=== PATIENT | male | born 1950 | race Caucasian/White ===

== ENCOUNTER 2018-08-06 18:43 | Observation (INO) ==
[2018-08-06] MEDS ORDERED: Ipratropium/Albuterol Neb 3 ML IH ONE ×2 (19:22→23:34)
[2018-08-06] MEDS ORDERED: methylPREDNISolone 125 MG/2 ML VIAL IVP ONE (19:22)
--- NOTE | 2018-08-06 19:30 | Emergency Department Note ---
Disposition Clinical Impression: Acute exacerbation of chronic obstructive airways disease, Bronchitis Dyspnea Qualifiers: Dyspnea type: shortness of breath Qualified Code(s): R06.02 - Shortness of breath; R06.00 - Dyspnea, unspecified; R06.01 - Orthopnea Disposition: Admitted As Inpatient Condition: Fair [facility] Care Provider[facility] - Forms: ED Satisfaction Letter Time of Disposition: 20:45 SOB HPI - General Chief Complaint: ED Shortness of Breath/Dyspnea Stated Complaint: sob Time Seen by Provider: 08/06/18 18:46 Source: patient, EMS Mode of arrival: EMS Limitations: no limitations Nursing Notes Reviewed: Yes Vital Signs Reviewed: Yes - History of Present Illness Pt Subjective Complaint: shortness of breath Onset (ago): day(s) (3 days) Context: other (Just quit smoking) Severity: severe (Cannot walk 1 room to the next in his house without significant shortness of breath.) Consistency/Duration: constant Improves with: rest Worsens with: exertion Known history of: COPD Associated symptoms: Reports: cough, wheezing, sputum production Treatment prior to arrival: bronchodilator Cough present: Yes Cough Description: Productive Cough Frequency: Intermittent Sputum production: Yes Sputum Amount: Moderate Sputum Color: White - Related Data Home oxygen amount: none Home Medications Medication Instructions Recorded Confirmed Albuterol Sulfate [Albuterol 2 puff IH Q6H PRN 08/06/18 08/06/18 Inhaler] Atorvastatin [Lipitor] 40 mg PO HS 08/06/18 08/06/18 Cholecalciferol (D-3) [Vitamin D] 2,000 unit PO DAILY 08/06/18 08/06/18 Finasteride [Proscar] 5 mg PO DAILY 08/06/18 08/06/18 Metformin HCl [Glucophage Xr] 750 mg PO BID 08/06/18 08/06/18 Tamsulosin HCl [Flomax] 0.4 mg PO QAM 08/06/18 08/06/18 Allergies Allergy/AdvReac Type Severity Reaction Status Date / Time Sulfa (Sulfonamide Allergy Anaphylaxis Verified 08/06/18 18:44 Antibiotics) All systems ED: reviewed and negative except as stated. Constitutional: Reports: chills. Denies: fever ENT ED: Denies: ear pain, throat pain, congestion Cardiovascular: Reports: dyspnea on exertion. Denies: chest pain, palpitations Respiratory: Reports: cough, dyspnea, wheezes Gastrointestinal: Denies: abdominal pain (Although he feels sore to the abdomen because of coughing), nausea, vomiting, diarrhea, constipation Musculoskeletal: Denies: back pain Integumentary: Denies: rash Neurological: Denies: headache Past Medical History - Past Medical History Attestation: Yes The following information was validated with the patient. Source: patient, old records reviewed, nursing notes reviewed Medical history: Reports: asthma, COPD, diabetes, other Psychiatric history: Reports: depression - Social History Smoking Status: Former smoker Alcohol use: Reports: rarely Drug use: Reports: none Physical Exam - General Limitations: no limitations General appearance: alert, in no apparent distress - Head Head exam: atraumatic, normocephalic, normal inspection - Eye Eye exam: Present: normal appearance, PERRL, EOMI. Absent: scleral icterus, conjunctival injection - ENT ENT exam: normal exam, normal oropharynx, mucous membranes moist, normal ex ternal ear exam - Neck Neck exam: Present: normal inspection, full ROM, trachea midline - Chest Chest inspection: Present: normal inspection, symmetric chest wall rise. Absent: tenderness - Respiratory Respiratory exam: Present: wheezes. Absent: respiratory distress, stridor - Cardiovascular Cardiovascular exam: Present: regular rate, normal rhythm, normal heart sounds - Abdominal Exam Abdominal exam: Present: soft, Non-Tender, normal bowel sounds - Extremities Exam Extremities exam: Present: normal inspection. Absent: pedal edema - Neurological Exam Neurological exam: Present: alert, oriented X3 - Psychiatric Psychiatric exam: Present: normal affect, normal mood - Skin Skin exam: Present: warm, dry. Absent: rash Course Course Narrative: Patient presents with shortness of breath over the past 3 days has been progressively worsening. He says he quit smoking 3 days ago and has felt sick since that time. On examination is got a lot of cough and got some wheezing as well. Vital signs are good including pulse ox. Initiating a shortness of breath workup including chest x-ray. I ordered breathing treatments and steroids. Disposition will be based on diagnostic results and reevaluation. - Reevaluation(s) Reevaluation #1: Chest x-ray was clear. Labs do not show anything significant. However the patient gets up at the bedside to use the urinal he gets pretty short of breath. He did improve initially with breathing treatments. Symptoms are severe enough that needs to be admitted to the hospital. I will talk to the hospitalist and get him admitted. Time: 20:42 - Consultations Consultation #1: Dr. Maurice, hospitalist - I discussed the case with the hospitalist. He is ac cepting the patient for admission. Time: 20:45 Vital Signs O2 Sat by Pulse Oximetry 94 08/06/18 18:52 Temperature 97.7 F 08/06/18 18:54 Pulse Rate 103 08/06/18 20:33 Respiratory Rate 20 08/06/18 20:33 Blood Pressure 135/88 08/06/18 20:33 O2 Sat by Pulse Oximetry 93 08/06/18 20:33 Oxygen Delivery Oxygen Delivery Nasal Cannula Shortness of Breath/Dyspnea - Medical Records Medical records reviewed: Yes I reviewed the patient's medical records. - Lab Data Lab results reviewed: Yes I reviewed the patient's lab results. Result diagrams: 08/06/18 19:42 08/06/18 19:42 Lab Results 08/06/18 08/06/18 08/06/18 Range/Units 19:42 19:42 19:42 WBC 7.0 (4.3-11.1) K/mcL RBC 4.11 L (4.19-5.50) M/mcL Hgb 13.1 (12.9-16.9) g/dL Hct 38.5 (37.5-50.1) % MCV 93.7 (83.0-100.0) fL MCH 31.9 (28.0-33.3) pg MCHC 34.0 (31.6-35.5) g/dL RDW 12.7 (11.5-14.5) % Plt Count 202 (140-400) K/mcL MPV 8.6 L (9.4-12.4) fL Immature Gran % 0.1 (0-4) % Seg Neutrophils % 48.7 % Lymphocytes % 32.2 % Monocytes % 8.1 % Eosinophils % 10.5 % Basophils % 0.4 % Neutrophils # 3.4 (1.6-8.9) K/mcL Lymphocytes # 2.2 (0.6-4.6) K/mcL Monocytes # 0.6 (0.0-1.3) K/mcL Eosinophils # 0.7 H (0.0-0.6) K/mcL Basophils # 0.0 (0.0-0.2) K/mcL Sodium 137 (136-145) mEq/L Potassium 3.7 (3.5-5.1) mEq/L Chloride 103 (98-107) mEq/L Carbon Dioxide 26 (23-29) mEq/L BUN 14 (8-23) mg/dL Creatinine 0.89 (0.70-1.30) mg/dL Est GFR ( Amer) > 60 (> 60) Est GFR (Non-Af Amer) > 60 (> 60) BUN/Creatinine Ratio 16 (6-26) Glucose 254 H (70-105) mg/dL Calculated Osmolality 293 (280-300) Calcium 9.6 (8.6-10.3) mg/dL Troponin I (< 0.04) ng/mL B-Natriuretic Peptide 9 (Less than 100) pg/mL 08/06/18 Range/Units 19:42 WBC (4.3-11.1) K/mcL RBC (4.19-5.50) M/mcL Hgb (12.9-16.9) g/dL Hct (37.5-50.1) % MCV (83.0-100.0) fL MCH (28.0-33.3) pg MCHC (31.6-35.5) g/dL RDW (11.5-14.5) % Plt Count (140-400) K/mcL MPV (9.4-12.4) fL Immature Gran % (0-4) % Seg Neutrophils % % Lymphocytes % % Monocytes % % Eosinophils % % Basophils % % Neutrophils # (1.6-8.9) K/mcL Lymphocytes # (0.6-4.6) K/mcL Monocytes # (0.0-1.3) K/mcL Eosinophils # (0.0-0.6) K/mcL Basophils # (0.0-0.2) K/mcL Sodium (136-145) mEq/L Potassium (3.5-5.1) mEq/L Chloride (98-107) mEq/L Carbon Dioxide (23-29) mEq/L BUN (8-23) mg/dL Creatinine (0.70-1.30) mg/dL Est GFR ( Amer) (> 60) Est GFR (Non-Af Amer) (> 60) BUN/Creatinine Ratio (6-26) Glucose (70-105) mg/dL Calculated Osmolality (280-300) Calcium (8.6-10.3) mg/dL Troponin I < 0.03 (< 0.04) ng/mL B-Natriuretic Peptide (Less than 100) pg/mL - Radiology Data Radiology results reviewed: Yes I reviewed the patient's radiology results. - EKG Data EKG attestation: Yes I reviewed and interpreted this EKG. EKG results narrative: Twelve-lead EKG performed at 1851 PM. Ordered, reviewed and interpreted by ED physician. Sinus rhythm at a rate of 100. Right axis deviation. Good hour progression across precordium. No obvious acute ischemic changes. Intervals otherwise within normal limits.
[2018-08-06 20:00] LABS: Basophils % 0.4 %; Eosinophils # 0.7 K/mcL (0.0-0.6); Eosinophils % 10.5 %; Hematocrit 38.5 % (37.5-50.1); Hemoglobin 13.1 g/dL (12.9-16.9); Immature Granulocytes % 0.1 % (0-4); Lymphocytes # 2.2 K/mcL (0.6-4.6); Lymphocytes % 32.2 %; Mean Corpuscular Hemoglobin 31.9 pg (28.0-33.3); Mean Corpuscular Volume 93.7 fL (83.0-100.0); Mean Platelet Volume 8.6 fL (9.4-12.4); Monocytes # 0.6 K/mcL (0.0-1.3); Monocytes % 8.1 %; Neutrophils # 3.4 K/mcL (1.6-8.9); Platelet Count 202 K/mcL (140-400); Red Blood Count 4.11 M/mcL (4.19-5.50); Red Cell Distribution Width 12.7 % (11.5-14.5); Segmented Neutrophils % 48.7 %
[2018-08-06 20:15] LABS: BUN/Creatinine Ratio 16 (6-26); Blood Urea Nitrogen 14 mg/dL (8-23); Calcium 9.6 mg/dL (8.6-10.3); Carbon Dioxide 26 mEq/L (23-29); Chloride 103 mEq/L (98-107); Glucose 254 mg/dL (70-105); Osmolality,Calculated 293 (280-300); Potassium 3.7 mEq/L (3.5-5.1); Sodium 137 mEq/L (136-145); eGFR For Non-African Americans > 60 (> 60)
[2018-08-06] MEDS ORDERED: cefTRIAXone 1,000 MG in 0.9 % Sodium Chloride Mini Bag 100 ML IVPB ONE (21:02)
[2018-08-06] MEDS ORDERED: Azithromycin 500 MG in D5% in Water 250 ML IVPB ONE (21:02)
[2018-08-06] MEDS ORDERED: Naloxone 0.4 MG/ML INJ IVP PRN (23:35)
[2018-08-06] MEDS ORDERED: Azithromycin 500 MG in D5% in Water 250 ML IVPB SCH (23:45)
[2018-08-07] MEDS: 0.9 % Sodium Chloride 1,000 ML IVC SCH ×2 (00:30→09:56)
[2018-08-07] MEDS: methylPREDNISolone 125 MG/2 ML VIAL IVP SCH ×3 (04:27→20:24)
[2018-08-07] MEDS ORDERED: *HR* Dextrose 50 % in Water (Syg) 50 ML SYRINGE IVP PRN (08:43)
[2018-08-07] MEDS ORDERED: D5% in Water 1,000 ML IVC PRN (08:43)
[2018-08-07] MEDS ORDERED: Dextrose Gel 15 GM/37.5 ML TUBE PO PRN ×2 (08:43)
[2018-08-07] MEDS: *HR* Metformin 500 MG TABLET PO SCH ×2 (09:54→18:17)
[2018-08-07] MEDS: Cholecalciferol (D-3) 1,000 UNIT TABLET PO SCH (09:55)
[2018-08-07] MEDS: Finasteride 5 MG TABLET PO SCH (09:55)
[2018-08-07] MEDS: Insulin LISPRO 300 UNITS/3 ML VIAL SQ SCH ×2 (12:10→18:17)
[2018-08-07] MEDS: Ipratropium/Albuterol Neb 3 ML IH PRN ×2 (13:15→23:13)
--- NOTE | 2018-08-07 17:47 | Internal Med History&Physical ---
Date of Encounter: 08/07/18 Time of Encounter: 17:00 Assessment and Plan (1) Acute exacerbation of chronic obstructive airways disease Current visit: Yes Status: Acute He has been started on Rocephin and Zithromax. Lactobacillus will be added. Room air oximetry will be checked on 6 minute walk prior to discharge. (2) DM type 2 (diabetes mellitus, type 2) Current visit: Yes Status: Chronic Check hemoglobin A1c in a.m. Continue Glucophage and Accu-Cheks with SSI. Qualifiers: Diabetes mellitus chcf insulin use: without chcf use Diabetes mellitus complication status: without complication Qualified Code(s): E11.9 - Type 2 diabetes mellitus without complications (3) BPH (benign prostatic hyperplasia) Current visit: Yes Status: Chronic Continue Flomax and Proscar. Qualifiers: Lower urinary tract symptom presence: unspecified whether lower urinary tract symptoms present Qualified Code(s): N40.0 - Benign prostatic hyperplasia without lower urinary tract symptoms Internal Medicine - H&P: HPI Chief complaint: Dyspnea and cough Admitted From: Emergency Dept Plans for Post Hospital Care: Home History of present illness: Mr. Alanis is a 68 year old male who came to emergency room stating he had increased dyspnea and cough onset 3 days ago. He reports the cough is productive of yellow/white mucus. He was evaluated in emergency room and was felt to have exacerbation of COPD with possible bronchitis. He was admitted to [facility] floor for ongoing care needs. He states he has smoked since age 13 up to 5 packs per day. He does not recall PFTs being done. He does not use home oxygen. He has not had SELVIN evaluation. Past Med Surg Social Fam HX - Past Medical History Medical history: asthma, COPD, diabetes, other Additional medical history: emphysema Psychiatric history: depression - Past Surgical History Additional surgical history: hernia repair x 2 - Social History Smoking Status: Former smoker Packs per day: ? Smokeless Tobacco Status: No Alcohol use: rarely Drug use: none - Family History Mother Living Status: Age at : 78 Hx Family Cancer: Yes Sister Living Status: Age at : 71 Cause of : stroke Internal Medicine - H&P: Meds Albuterol Sulfate [Albuterol Inhaler] 2 puff IH Q6H PRN 08/06/18 [History] Atorvastatin [Lipitor] 40 mg PO HS 08/06/18 [History] Cholecalciferol (D-3) [Vitamin D] 2,000 unit PO DAILY 08/06/18 [History] Finasteride [Proscar] 5 mg PO DAILY 08/06/18 [History] Metformin HCl [Glucophage Xr] 750 mg PO BID 08/06/18 [History] Tamsulosin HCl [Flomax] 0.4 mg PO QAM 08/06/18 [History] Allergy/AdvReac Type Severity Reaction Status Date / Time Sulfa (Sulfonamide Allergy Anaphylaxis Verified 08/06/18 18:44 Antibiotics) All Systems PM: A 10-system review of systems was performed and is negative for pertinent findings except as documented above in the HPI. Review of systems: Gen.: He states his weight is increased approximately 10 pounds in the past year Cardiovascular: He denies hypertension NM heart failure angina DVT or pulmonary embolus. He reports dyspnea on exertion. Respiratory: As per history of present illness GI: He denies disorders of his liver gallbladder or exocrine pancreas : He has BPH. He denies disorders of his kidney or bladder. Neurologic: He had syncope from a coughing episode in 2011. He has had several episodes of near syncope with coughing since then. No workup has been done. He denies large distribution strokes or seizures. Endocrine: He was diagnosed with DM 2 approximately 2002. He has hyperlipidemia but denies thyroid disease. Hematology/oncology: He denies blood disorders cancers or anemia. Psychiatric: He has feelings of depression at times but does not take medication. He denies anxiety or other mental health diagnosis. [place] skeletal: He has had diffuse arthralgias for approximately 6 weeks. He denies gout or other known bone joint or muscle disorders. - Constitutional Vitals: Temp Pulse Resp BP Pulse Ox 98 F 99 19 137/83 92 08/07/18 16:52 08/07/18 16:52 08/07/18 16:52 08/07/18 16:52 08/07/18 16:52 Exam: Gen.: He is a well-developed well-nourished male sitting on the side of bed who appears slightly dyspneic. HEENT: Head is atraumatic and normocephalic. Eyes: EOMI. There is no scleral icterus. Mouth: Mucosa is moist. Neck: Supple and nontender. There is no thyromegaly or adenopathy noted. Heart: Regular without murmurs gallops or ectopics Lungs: No wheezes or crackles are heard. Abdomen: Soft and nontender. No masses or guarding are noted. Extremities: There is no cyanosis edema or clubbing noted. Dorsalis pedis and posterior tibial pulses are 1-2 over 2 bilaterally. Neurologic: Mental status: He is talkative and a good historian. Cranial nerves: Smile is symmetric. Forehead wrinkles bilaterally. Tongue protrudes midline. EOMI. Motor: There is no pronator drift. Cerebellar: Finger to nose is intact bilaterally. Skin: Warm and dry Internal Med - H&P Results - Labs CBC & Chem 7: 08/06/18 19:42 08/06/18 19:42 Labs: Short CBC 08/06/18 Range/Units 19:42 WBC 7.0 (4.3-11.1) K/mcL Hgb 13.1 (12.9-16.9) g/dL Hct 38.5 (37.5-50.1) % Plt Count 202 (140-400) K/mcL Neutrophils # 3.4 (1.6-8.9) K/mcL BMP 08/06/18 19:42 Sodium 137 Potassium 3.7 Chloride 103 Carbon Dioxide 26 BUN 14 Creatinine 0.89 Glucose 254 H Calcium 9.6 Cardiac Enzymes 08/06/18 Range/Units 19:42 Troponin I < 0.03 (< 0.04) ng/mL - Impressions ITS Impressions Chest X-Ray 08/06/18 19:21 IMPRESSION: No acute disease. D/ / Joanna Pedroza Cha, MD / Joanna Pedroza Cha, MD Interpreting Provider: Joanna Pedroza Cha, MD
[2018-08-07] MEDS ORDERED: cefTRIAXone 1,000 MG in 0.9 % Sodium Chloride Mini Bag 100 ML IVPB SCH (21:00)
[2018-08-07] MEDS ORDERED: Insulin LISPRO 300 UNITS/3 ML VIAL SQ SCH (21:00)
[2018-08-07] MEDS ORDERED: Azithromycin 500 MG in D5% in Water 250 ML IVPB SCH (23:00)
[2018-08-08] MEDS: Ipratropium/Albuterol Neb 3 ML IH PRN (03:02)
[2018-08-08] MEDS: methylPREDNISolone 125 MG/2 ML VIAL IVP SCH (05:08)
[2018-08-08 06:09] LABS: Basophils % 0.1 %; Hematocrit 38.2 % (37.5-50.1); Hemoglobin 12.7 g/dL (12.9-16.9); Immature Granulocytes % 0.4 % (0-4); Lymphocytes # 0.9 K/mcL (0.6-4.6); Mean Corpuscular HGB Conc 33.2 g/dL (31.6-35.5); Mean Corpuscular Hemoglobin 31.4 pg (28.0-33.3); Mean Corpuscular Volume 94.6 fL (83.0-100.0); Mean Platelet Volume 8.9 fL (9.4-12.4); Monocytes # 0.7 K/mcL (0.0-1.3); Neutrophils # 9.6 K/mcL (1.6-8.9); Platelet Count 253 K/mcL (140-400); Red Blood Count 4.04 M/mcL (4.19-5.50); Red Cell Distribution Width 13.1 % (11.5-14.5); Segmented Neutrophils % 85.5 %
[2018-08-08 06:48] LABS: Alanine Aminotransferase 15 Units/L (7-52); Albumin 4.3 g/dL (3.5-5.7); Albumin/Globulin Ratio 1.3 (1.1-2.2); Alkaline Phosphatase 89 Units/L (34-104); Aspartate Amino Transferase 21 Units/L (13-39); BUN/Creatinine Ratio 21 (6-26); Bilirubin,Total 0.7 mg/dL (0.3-1.0); Blood Urea Nitrogen 19 mg/dL (8-23); Calcium 9.9 mg/dL (8.6-10.3); Carbon Dioxide 24 mEq/L (23-29); Chloride 102 mEq/L (98-107); Globulin 3.2 g/dL (2.4-3.5); Glucose 292 mg/dL (70-105); Osmolality,Calculated 297 (280-300); Potassium 3.9 mEq/L (3.5-5.1); Sodium 137 mEq/L (136-145); Total Protein 7.5 g/dL (6.4-8.9); eGFR For Non-African Americans > 60 (> 60)
[2018-08-08 07:49] VITALS: BP 110/59
[2018-08-08] MEDS: Cholecalciferol (D-3) 1,000 UNIT TABLET PO SCH (09:05)
[2018-08-08] MEDS: Finasteride 5 MG TABLET PO SCH (09:06)
[2018-08-08] MEDS: *HR* Metformin 500 MG TABLET PO SCH (09:06)
[2018-08-08] MEDS: Insulin LISPRO 300 UNITS/3 ML VIAL SQ SCH (09:12)
--- NOTE | 2018-08-08 10:14 | Discharge Summary ---
Orders not resulted at time of discharge: Pending orders 08/06/18 19:21 EKG [ECG 12 lead ECG] [ECG] Stat 08/06/18 19:42 Culture,Blood [BC] Stat 08/08/18 05:13 Hgb A1C AM 0400 Vitamin D 25 Hydroxy AM 0400 Date of Encounter: 08/08/18 Time of Encounter: 10:05 - Discharge Diagnosis (1) Acute exacerbation of chronic obstructive airways disease Priority: Primary Status: Acute (2) DM type 2 (diabetes mellitus, type 2) Priority: Secondary Status: Chronic Qualifiers: Diabetes mellitus longwall foreman insulin use: without longwall foreman use Diabetes mellitus complication status: without complication Qualified Code(s): E11.9 - Type 2 diabetes mellitus without complications (3) BPH (benign prostatic hyperplasia) Priority: Secondary Status: Chronic Qualifiers: Lower urinary tract symptom presence: unspecified whether lower urinary tract symptoms present Qualified Code(s): N40.0 - Benign prostatic hyperplasia without lower urinary tract symptoms Hospital course: Mr. Alanis is a 68 year old male who came to emergency room stating he had increased dyspnea and cough onset 3 days ago. He reports the cough is producti ve of yellow/white mucus. He was evaluated in emergency room and was felt to have exacerbation of COPD with possible bronchitis. He was admitted to [facility] floor for ongoing care needs. Initial orders were written by the emergency room physician. I saw him on August 07 and performed a history and physical. He was started on IV Rocephin and Zithromax in emergency room. Lactobacillus and IV steroids were also given. He felt improved when I saw him on August 08 and stable for discharge home. Room air oximetry showed adequate saturation without requirement for supplemental oxygen. Hemoglobin A1c was ordered with results pending at time of discharge. [facility] I encouraged him to become a nonsmoker. - Time Spent with Patient Total time spent providing and/or coordinating discharge services: - Discharge Medications Prescriptions: Cefuroxime PO [Ceftin] 500 mg PO Q12HR #6 tablet Azithromycin [Zithromax] 250 mg PO DAILY #3 tablet Lactobacillus [Culturelle] 1 each PO BID #6 cap.sprink predniSONE [PredniSONE] 10 mg PO BIDWM #6 tablet Home Medications: Albuterol Sulfate [Albuterol Inhaler] 2 puff IH Q6H PRN 08/06/18 [History] Atorvastatin [Lipitor] 40 mg PO HS 08/06/18 [History] Cholecalciferol (D-3) [Vitamin D] 2,000 unit PO DAILY 08/06/18 [History] Finasteride [Proscar] 5 mg PO DAILY 08/06/18 [History] Metformin HCl [Glucophage Xr] 750 mg PO BID 08/06/18 [History] Tamsulosin HCl [Flomax] 0.4 mg PO QAM 08/06/18 [History] Azithromycin [Zithromax] 250 mg PO DAILY #3 tablet 08/08/18 [Rx] Cefuroxime PO [Ceftin] 500 mg PO Q12HR #6 tablet 08/08/18 [Rx] Lactobacillus [Culturelle] 1 each PO BID #6 cap.sprink 08/08/18 [Rx] predniSONE [PredniSONE] 10 mg PO BIDWM #6 tablet 08/08/18 [Rx] Allergies/Adverse Reactions: Allergy/AdvReac Type Severity Reaction Status Date / Time Sulfa (Sulfonamide Allergy Anaphylaxis Verified 08/06/18 18:44 Antibiotics) Date of admission: 08/06/18 22:00 [facility] care physician: [facility] - Constitutional Vitals: Temp Pulse Resp BP Pulse Ox 98.1 F 59 18 110/59 92 08/08/18 07:44 08/08/18 07:44 08/08/18 07:44 08/08/18 07:44 08/08/18 09:35 - Patient Status Disposition: Home, Self-Care Condition: Fair - Discharge Instructions Follow Up With: [facility] Provider[facility] - 1 week - Diet and Activity Activity: resume usual activities as tolerated Diet: diabetic diet
[2018-08-08 10:27] LABS: Estimated Average Glucose 214 mg/dl; Hemoglobin A1C 9.1 %
--- NOTE | 2018-08-11 07:51 | Electrocardiograph Report ---
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
== END 2018-08-08 11:25 | disposition home or self-care (01) ==
LOC: INPPIK 18:43 → EMEROOPIK 18:43 → INPPIK 21:44 → EMEROOPIK 21:44
PROVIDERS: ADMIT Internal Medicine; ATTEND Internal Medicine